=== PATIENT | female | born 1990 ===

== ENCOUNTER 2018-08-14 12:40 | Emergency (ER) | payer OTHER ==
[~2018-08-14] VITALS: Ht 162.6 cm; Wt 81.6 kg
== END 2018-08-14 16:49 | disposition home or self-care (01) ==
LOC: ER 12:40
DX: S90.02XA Contusion of left ankle, initial encounter (principal); S80.01XA Contusion of right knee, initial encounter; W18.39XA Other fall on same level, initial encounter; Y93.89 Activity, other specified; Y92.89 Other specified places as the place of occurrence of the external cause; Y99.8 Other external cause status

== ENCOUNTER 2021-07-06 11:11 | Emergency (ER) | payer OTHER ==
[~2021-07-06] VITALS: Ht 162.6 cm; Wt 102.1 kg
[2021-07-06] MEDS ORDERED: TOPROL XL25 M1 PO (11:35)
[2021-07-06] MEDS ORDERED: SYNTHROID300 MCG PO (11:36)
[2021-07-06] MEDS ORDERED: SKELAGESIC PO (15:19)
[2021-07-06] MEDS ORDERED: SKELAXIN800 MG PO (15:19)
== END 2021-07-06 15:39 ==
LOC: ER 11:11
DX: R07.89 Other chest pain (principal)